=== PATIENT | female | born 1940 | race Caucasian/White ===

== ENCOUNTER → 2016-10-14 | Outpatient (CLI) | payer MEDICARE, OTHER | LOC: MW.CHPM 08:00 | CPT/HCPCS: 99214 ==

== ENCOUNTER 2024-06-30 14:25 | Emergency (ER) | payer MEDICARE, OTHER ==
[2024-06-30 16:29] LABS: CALCIUM 9.7 mg/dL (8.5-10.1); CARBON DIOXIDE,CO2 29.2 mmol/L (21.0-32.0); CREATININE 1.2 mg/dL (0.6-1.0); EST CRCL DRUG DOSING (CG) 29.6 mL/min; POTASSIUM,K 5.3 mmol/L (3.5-5.1)
[2024-06-30] MEDS: Sodium Polystyrene Sulfonate 15 GM/60 ML Susp 60 ML Bot PO ONE (17:36)
[2024-06-30] MEDS: Chlorthalidone 25 MG Tab PO ONE (18:56)
[2024-06-30 20:05] VITALS: BP 207/78; PULSE 77
== END 2024-06-30 20:00 | disposition home or self-care (01) ==
LOC: MW.ED 14:25
DX: I10 Essential (primary) hypertension (principal); M54.9 Dorsalgia, unspecified; R59.1 Generalized enlarged lymph nodes; E87.5 Hyperkalemia; N18.9 Chronic kidney disease, unspecified; Z95.5 Presence of coronary angioplasty implant and graft
CPT/HCPCS: 36415; 80048; 84484; 93005; 99283; A9270